=== PATIENT | female | born 2000 | race American Indian/Alaskan Native ===

== ENCOUNTER 2019-09-12 09:09 | Emergency (ER) | payer SELFPAY ==
[2019-09-12] MEDS ORDERED: IBUPROFEN 800 MG TAB PO ONE (11:19)
[2019-09-12] MEDS ORDERED: ONDANSETRON 4 MG ODT TAB PO ONE (11:19)
--- NOTE | 2019-09-12 11:20 | Emergency Department Report ---
ED General Adult HPI - General Chief complaint: Upper Respiratory Infection Stated complaint: HEADACHE Time Seen by Provider: 09/12/19 10:27 Source: patient Mode of arrival: Ambulatory Limitations: No Limitations - History of Present Illness Initial comments: This is a 19-year-old -Citizen Of [place] female who presents to the emergency room with a headache and low back pain since yesterday. No significant past medical history. Patient also reports diarrhea that is occasional. She denies recent travel or injury. She denies vomiting, abdominal pain, fever, chills. Onset/Timin -: days(s) Treatments Prior to Arrival: none - Related Data Previous Rx's Medication Instructions Recorded Last Taken Type Loperamide [Imodium] 2 mg PO Q2HR PRN #14 capsule 09/12/19 Unknown Rx Ondansetron [Zofran Odt] 4 mg PO Q8HR PRN #15 tab.rapdis 09/12/19 Unknown Rx Allergies Allergy/AdvReac Type Severity Reaction Status Date / Time No Known Allergies Allergy Unverified 09/12/19 11:19 ED Review of Systems ROS: Stated complaint: HEADACHE Other details as noted in HPI Constitutional: denies: chills, fever Respiratory: denies: cough, shortness of breath, wheezing Cardiovascular: denies: chest pain, palpitations Gastrointestinal: nausea, diarrhea. denies: abdominal pain, vomiting, constipation, hematemesis, melena, hematochezia Genitourinary: denies: urgency, dysuria, discharge Musculoskeletal: back pain. denies: joint swelling, arthralgia Skin: denies: rash, lesions Neurological: denies: headache, weakness, paresthesias Psychiatric: denies: anxiety, depression ED Past Medical Hx - Medications Home Medications: Home Medications Medication Instructions Recorded Confirmed Last Taken Type Loperamide [Imodium] 2 mg PO Q2HR PRN #14 capsule 09/12/19 Unknown Rx Ondansetron [Zofran Odt] 4 mg PO Q8HR PRN #15 tab.rapdis 09/12/19 Unknown Rx ED Physical Exam - General Limitations: No Limitations General appearance: alert, in no apparent distress - ENT ENT exam: Present: normal orophraynx, mucous membranes moist, TM's normal bilaterally, normal external ear exam - Respiratory Respiratory exam: Present: normal lung sounds bilaterally. Absent: respiratory distress - Cardiovascular Cardiovascular Exam: Present: regular rate, normal rhythm. Absent: systolic murmur, diastolic murmur, rubs, gallop - GI/Abdominal GI/Abdominal exam: Present: soft, normal bowel sounds. Absent: distended, ten derness, guarding, rebound, rigid, organomegaly - Extremities Exam Extremities exam: Present: normal inspection - Back Exam Back exam: Present: full ROM. Absent: CVA tenderness (R), CVA tenderness (L), paraspinal tenderness, vertebral tenderness, rash noted - Neurological Exam Neurological exam: Present: alert, oriented X3, normal gait - Psychiatric Psychiatric exam: Present: normal affect, normal mood - Skin Skin exam: Present: warm, dry, intact, normal color. Absent: rash ED Course Vital Signs 09/12/19 09/12/19 09:36 11:39 Temperature 97.9 F Pulse Rate 123 H 94 H Respiratory 20 18 Rate Blood Pressure 139/81 Blood Pressure 130/80 [Left] O2 Sat by Pulse 100 100 Oximetry ED Medical Decision Making - Medical Decision Making This is a 19 y.o. female that presents with diarrhea, headache, and low back pain. Patient is stable and was examined by me. Vitals stable. Negative abdominal tenderness, no signs of pharyngitis on exam. This is believed to be a viral infection. Plan to start Imodium and zofran for gastritis. Discussed plan with patient and agreed to plan. No further questions noted by the patient. Discharged home in stable condition. Follow up with PCP in 2-3 days. Critical care attestation.: If time is entered above; I have spent that time in minutes in the direct care of this critically ill patient, excluding procedure time. ED Disposition Clinical Impression: Gastroenteritis Diarrhea Qualifiers: Diarrhea type: functional diarrhea Qualified Code(s): K59.1 - Functional diarrhea Headache Qualifiers: Headache type: tension-type Headache chronicity pattern: acute headache Intractability: not intractable Qualified Code(s): G44.209 - Tension-type headache, unspecified, not intractable Disposition: DC-01 TO HOME OR SELFCARE Is pt being admited?: No Condition: Stable Instructions: Gastroenteritis (ED) Additional Instructions: Frequent hand washing is important to reduce spread. Prompt disinfection of contaminated surfaces with household chlorine bleach- based certified hearing instrument dispenser and washing of soiled clothing and bedding should be advised. If food or water is thought to be contaminated, it should be avoided. Increase fluid intake. Drinks high in sugars such as carbonated soft drinks, fruit juice, and highly sugared liquids should be avoided. Prescriptions: Loperamide [Imodium] 2 mg PO Q2HR PRN #14 capsule PRN Reason: Diarrhea Ondansetron [Zofran Odt] 4 mg PO Q8HR PRN #15 tab.rapdis PRN Reason: Nausea And Vomiting Referrals: [facility] [Outside] - 3-5 Days [facility] [Outside] - 3-5 Days [facility] [Outside] - 3-5 Days Forms: Work/School Release Form(ED) Time of Disposition: 12:57
[2019-09-12 11:40] VITALS: BP 130/80
== END 2019-09-12 13:07 | disposition home or self-care (01) ==
LOC: ED 09:09
DX: K52.9 Noninfective gastroenteritis and colitis, unspecified (principal); R51 Headache; Z79.899 Other long term (current) drug therapy
CPT/HCPCS: 99282; Q0162